=== PATIENT | female | born 1965 | race Caucasian/White ===

== ENCOUNTER 2019-03-14 14:00 | Emergency (ER) | payer OTHER ==
[2019-03-14] MEDS ORDERED: PROMETHAZINE HCL 25 MG/ML INJ ONE (14:02)
[2019-03-14] MEDS ORDERED: PROMETHAZINE HCL 25 MG/ML INJ IVP ONE (14:05)
[2019-03-14] MEDS ORDERED: PROMETHAZINE HCL 25 MG TAB PO ONE (14:05)
[2019-03-14] MEDS ORDERED: NS 1,000 ML IV ONE ×2 (14:23→15:00)
[2019-03-14] MEDS ORDERED: HALOPERIDOL LACT 5 MG/ML INJ IVP ONE (14:30)
--- NOTE | 2019-03-14 14:33 | EDPHY ---
H & P Stated Complaint: nausea and vomiting - Personal History LMP (Females 10-55): Extended Cycle BCP/Inj Current Tetanus/Diphtheria Vaccine: Unsure Current Tetanus Diphtheria and Acellular Pertussis (TDAP): Unsure - Medical/Surgical History Hx Asthma: No Hx Chronic Respiratory Disease: No Hx Diabetes: No Hx Cardiac Disease: No Hx Renal Disease: No Hx Cirrhosis: No Hx Alcoholism: No Hx HIV/AIDS: No Hx Splenectomy or Spleen Trauma: No Other PMH: HTN - Social History Smoking Status: Current some day smoker Alcohol Use: Sober Drug Use: Marijuana Time Seen by Provider: 03/14/19 14:17 HPI/ROS: CHIEF COMPLAINT: Persistent vomiting HISTORY OF PRESENT ILLNESS: 53-year-old female presents with persistent vomiting. Onset of vomiting at 7:00 a.m., unable to tolerate oral fluids or food since. Persistent vomiting, now dry heaving. Zofran 8 mg IV given by EMS and continues to have dry heaves. No associated abdominal pain, diarrhea or fever. No prior similar symptoms. She uses marijuana frequently. REVIEW OF SYSTEMS: complete 10 point ROS reviewed and is negative except for the noted elements in the HPI (Chelle Reyes) - Physical Exam Exam: General Appearance: Alert, dry heaves, appears uncomfortable Eyes: Pupils equal and round, no conjunctival pallor ENT, Mouth: Mucous membranes moist Neck: Normal inspection Respiratory: Lungs are clear to auscultation Cardiovascular: Regular rate and rhythm Gastrointestinal: Abdomen is soft and nontender Neurological: A&O, nonfocal exam Skin: Warm and dry Extremities: Normal inspection Psychiatric: Mood and affect normal (Chelle Reyes S) Constitutional: Initial Vital Signs Temperature (C) 36.4 C 03/14/19 14:05 Heart Rate 86 03/14/19 14:05 Respiratory Rate 18 03/14/19 14:05 Blood Pressure 132/69 H 03/14/19 14:05 O2 Sat (%) 99 03/14/19 14:05 O2 Delivery Mode Room Air O2 (L/minute) 2 Allergies/Adverse Reactions: No Known Allergies Allergy (Unverified 03/14/19 14:09) Home Medications: Medication Instructions Recorded Azithromycin [Zithromax] 250 mg PO DAILY #6 tab 03/14/19 Ondansetron Odt [Zofran Odt 4 mg 4 mg PO Q4 PRN #6 tab 03/14/19 (*)] Ondansetron Odt [Zofran Odt] 4 mg PO Q4PRN PRN #10 tab 03/14/19 Valsartan 03/14/19 Medical Decision Making ED Course/Re-evaluation: This patient presents with intractable vomiting. IV normal saline 1 L, Phenergan 12.5 mg IV given. Continues to have dry heaves. Haldol 2.5 mg IV given. 1500: feels better, slight nausea persists. No abd pain. Abd soft, NT. 2nd L of normal saline given. ?[facility] Will continue to observe. Signed over to Dr. Sol at shift change. (Chelle Reyes) Differential Diagnosis: Differential diagnosis includes though it is not limited to appendicitis, cholecystitis, diverticulitis, pyelonephritis, bowel perforation, small bowel obstruction. (Chelle Reyes) Other Provider: On re-evaluation at 1800, patient still complains of severe nausea and inability to tolerate PO despite multiple rounds of antiemetics. I have ordered IV ativan, and a CTAP given elevated WBC and failure of symptomatic control. 19:[address] Haas, radiolgoist. CT shows evidence of RLL pneumonia , enlarged spleen, and enteritis. I discussed these results with the patient who is certainly some prior eyes that she has pneumonia, as [place]. We discussed options. The patient was offered admission but feels that she can go home comfortably tonight. I will prescribe her Zofran as well as Z-Theo to treat her pneumonia. Given her significant nausea and vomiting today, we discussed the fact that she is at risk for being unable to tolerate this antibiotic by mouth. She will wait till tomorrow to start a course of antibiotics and will return to the emergency department should she have continuing nausea and vomiting. She again declines admission at time of discharge. (Woody Sol) - Data Points Laboratory Results: Laboratory Results 03/14/19 14:32 03/14/19 14:32 Medications Given: Discontinued Medications Haloperidol Lactate (Haldol Injection) 2.5 mg IVP EDNOW ONE Stop: 03/14/19 14:31 Last Admin: 03/14/19 14:36 Dose: 2.5 mg Sodium Chloride (Ns) 1,000 mls @ 0 mls/hr IV ONCE ONE PRN Reason: Wide Open Stop: 03/14/19 14:24 Last Admin: 03/14/19 14:37 Dose: 1,000 mls Sodium Chloride (Ns) 1,000 mls @ 0 mls/hr IV ONCE ONE; Wide Open PRN Reason: Protocol Stop: 03/14/19 15:01 Last Admin: 03/14/19 15:31 Dose: 1,000 mls Lorazepam (Ativan Injection) 1 mg IVP EDNOW ONE Stop: 03/14/19 18:28 Last Admin: 03/14/19 18:40 Dose: 1 mg Ondansetron HCl (Zofran Odt 4 Mg Prepack#2) 1 btl TAKEHOME EDNOW ONE Stop: 03/14/19 20:33 Last Admin: 03/14/19 20:55 Dose: 1 btl Promethazine HCl (Phenergan) 12.5 mg PO ONCE ONE Stop: 03/14/19 14:06 Last Admin: 03/14/19 14:19 Dose: Not Given Promethazine HCl (Phenergan) 12.5 mg IVP ONCE ONE Stop: 03/14/19 14:06 Last Admin: 03/14/19 14:13 Dose: 12.5 mg Departure - Departure Disposition: Home, Routine, Self-Care Clinical Impression: Vomiting, Pneumonia Condition: Good Instructions: Azithromycin (By mouth), Ondansetron (By mouth), Acute Nausea and Vomiting (ED) Additional Instructions: 1. Clear liquids for 24 hours. 2. Advance diet as tolerated. I suggest the BRAT diet to start: bananas, rice, applesauce and toast. 3. Return for worsening symptoms, persistent vomiting, abdominal pain, any concerns. Referrals: Jaime Bentley DO [Doctor of Osteopathy] - 1 day, if not improved Prescriptions: Azithromycin [Zithromax] 250 mg PO DAILY #6 tab Ondansetron Odt [Zofran Odt 4 mg (*)] 4 mg PO Q4 PRN #6 tab PRN Reason: Nausea Ondansetron Odt [Zofran Odt] 4 mg PO Q4PRN PRN #10 tab PRN Reason: Nausea
[2019-03-14 14:40] LABS: PLATELET COUNT 422 10^3/uL (150-400)
[2019-03-14] MEDS ORDERED: LORazepam 2 MG/ML INJ IVP ONE (18:27)
[2019-03-14] MEDS ORDERED: IOPAMIDOL (ISOVUE-300) 100 ML BTL ONE (19:05)
[2019-03-14] MEDS ORDERED: ONDANSETRON 4MG PREPACK#2 BTL TAKEHOME ONE (20:32)
[2019-03-14 20:36] VITALS: BP 123/77
== END 2019-03-14 21:53 | disposition home or self-care (01) ==
LOC: EDUNIT#
DX: J18.9 Pneumonia, unspecified organism (principal); R11.2 Nausea with vomiting, unspecified; E86.9 Volume depletion, unspecified; I10 Essential (primary) hypertension; F12.90 Cannabis use, unspecified, uncomplicated; F17.200 Nicotine dependence, unspecified, uncomplicated
CPT/HCPCS: 96374; J1630; J2060; J2550; Q9967